=== PATIENT | male | born 1940 | race Caucasian/White ===

== ENCOUNTER 2016-07-20 08:44 | Emergency (ER) | payer MEDICARE ==
[2016-07-20 09:34] LABS: Urine Bacteria TRACE; Urine RBC >50 /hpf (0-5)
[2016-07-20 09:37] LABS: Hemoglobin 12.4 gm/dL (13.5-18.0); Mean Cell Volume 87.2 fl (78-100); Mean Corpuscular Hemoglobin 27.7 pg (27-31); Mean Corpuscular Hgb Conc 31.8 g/dl (32-36); Mean Platelet Volume 10.4 fl (6.0-9.5); Neutrophil # 3.2 K/mm3 (1.3-6.0); Neutrophil % 69.7 % (42-75.0); Platelet Count 201 K/mm3 (150-450); Red Blood Count 4.47 M/mm3 (4.7-6.0); Red Cell Distribution Width 14.9 % (11.5-14.0); White Blood Count 4.6 K/mm3 (4.0-10.5)
[2016-07-20 09:46] LABS: Albumin * 3.4 gm/dl (3.4-5.0); Anion Gap 8.7 mmol/L (6.8-13.8); BUN/Creatinine Ratio 11.5 (9.0-21.6); Bilirubin, Total 0.6 mg/dL (0.0-1.1); Ca. Corrected For Albumin 8.8 mg/dL (8.4-10.2); Calcium * 8.6 mg/dL (7.9-10.9); Carbon Dioxide 31.6 mmol/L (24-32.6); Potassium 4.3 mmol/L (3.4-4.6)
--- OUTSIDE RECORDS SUMMARY | 2016-07-20 10:27 | XMS REPORT | Continuity of Care Document ---
:1940 Author Organization [facility] ([facility]) Address [place] [address] Phone [phone] Care Team Providers Name Role Phone [phone], Need To Check Primary Care Provider Unavailable Source Comments This disclosure is being made pursuant to the Care Everywhere program, applicable federal and state laws, and may not contain all informaitonavailable regarding this patient.[facility] ([facility]) Active Allergies and Adverse Reactions No Known Allergies Current Medications Prescription Sig. Disp. Refills Start Date End Date Status terazosin 10 mg capsule Take 10 mg by Active mouth at bedtime. simvastatin 20 mg tablet Take 20 mg by Active mouth every evening. multivitamins with Take 1 tablet by Active mhpgcesi-qjhycsji-nnkppc mouth daily. 0.4-300-250 mg-mcg-mcg per tablet metoPROLol tartrate 50 mg Take 50 mg by Active tablet mouth 2 times daily. finasteride 5 mg tablet Take 5 mg by mouth Active daily. citalopram 20 mg tablet Take 20 mg by Active mouth daily. allopurinol 300 mg tablet Take 300 mg by Active mouth daily. Active Problems Problem Noted Date Malignant neoplasm of ascending colon 04/28/2015 Social History Tobacco Use Types Packs/Day Years Used Date Former Smoker Smokeless Tobacco: Never Used Last Filed Vital Signs Vital Sign Reading Time Taken Blood Pressure 125/63 04/28/2015 9:52 AM [employer] Pulse 80 04/28/2015 9:52 AM [employer] Temperature 35.3 C (95.5 F) 04/28/2015 9:52 AM [employer] Respiratory Rate - - Height 1.672 m (5' 5.85") 04/28/2015 9:52 AM [employer] Weight 86.6 kg (190 lb 14.7 oz) 04/28/2015 9:52 AM [employer] Body Mass Index 30.98 04/28/2015 9:52 AM [employer] Oxygen Saturation 97% 04/28/2015 9:52 AM [employer] Plan of Care Health Maintenance Due Date Last Done Comments Hepatitis B Vaccine (1 of 3 - Primary Series) 1940 Tdap Vaccine 1953 Lipid Disorder Screening 1960 Td Vaccine 1960 Colonoscopy 04/02/1992 Prostate Cancer Screening 1992 Zoster Vaccine 2002 Pneumococcal Vaccine (1 of 2 - PCV13) 2007 Influenza Vaccine: Seasonal (#1) 09/22/2015 Results from Last 3 Months Not on file
--- NOTE | 2016-07-20 10:28 | ERNOTE ---
ER Male HPI Stated Complaint: BLOOD IN URINE ER Male: other Time Seen by Provider: 07/20/16 10:05 Source: patient Exam Limitations: no limitations Immunizations: IMMUNIZATION HX History of Influenza Vaccine No Hx Pneumococcal Vaccination No Allergies/Adverse Reactions: Allergies No Known Allergies Allergy (Verified 07/20/16 08:51) Home Medications: HOME MEDICATIONS Allopurinol [Zyloprim] 300 mg PO 1800 03/17/15 [Last Taken Unknown] Aspirin [Aspirin Enteric Coated] 81 mg PO 1800 03/17/15 [Last Taken Unknown] Citalopram Hydrobromide [Celexa] 20 mg PO 1800 03/17/15 [Last Taken Unknown] Finasteride [Proscar] 5 mg PO 1800 03/17/15 [Last Taken Unknown] Metoprolol Tartrate [Lopressor] 50 mg PO 1800 03/17/15 [Last Taken 04/14/15 18: 00] Multivit-Min/FA/Lycopen/Lutein [[employer] Senior Multivitamin Tab] 1 each PO 1800 03/17/15 [Last Taken Unknown] Simvastatin [Zocor] 20 mg PO HS 03/17/15 [Last Taken Unknown] Terazosin HCl 10 mg PO 1800 03/17/15 [Last Taken Unknown] Omeprazole [Prilosec] 40 mg PO DAILY #90 cap 03/18/15 [Last Taken Unknown] Ferrous Sulfate [Iron] 325 mg PO 1800 04/11/15 [Last Taken Unknown] - History of Present Illness Narrative: Patient started to have urinary symptoms two weeks ago. Initially he had hesitancy,urgency, and frequency for about four days. Then those symptoms resolved, he was able to urinate with good flow but started to have gross hematuria. He denies any pain, no fever, no other symptoms. He has had multiple kidney stone in the past, last more than ten years ago. Review of Systems - Review of Systems Constitutional: Absent: recent illness, fever, chills ENT: Absent: sore throat Respiratory: Absent: shortness of breath, cough Cardiology: Absent: chest pain Gastrointestinal/Abdominal: Absent: nausea, vomiting, abdominal pain Genitourinary: Present: See HPI Musculoskeletal: Absent: back pain Neurological: Absent: headache - Patient's Past Medical History Patient History - Medical: Depression, Kidney stone Patient History - Cardiac/Respiratory: Hypertension, Hyperlipidemia Patient History - Cancer: No Hx of Cancer Patient History - Surgical Procedures: T & A, Other Patient History - Other: None - Family History Father Family History - Cardiac/Respiratory: CHF Mother Family History - Medical: No pertinent hx - Social History Living Situations: home Abuse History: No History of abuse Psych History: Hx of Depression, Current tx/ever been on anti-depressants or anti-anxiety meds Alcohol Use: none Drug Use: none - Immunizations Hx Pneumococcal Vaccination: No History of Influenza Vaccine: No Physical Exam - Physical Exam General Appearance: Present: wd/wn, alert, no apparent distress Respiratory: Present: no respiratory distress, normal breath sounds, no accessory muscle use, lungs clear Cardiovascular/Chest: Present: regular rate, rhythm, no murmur Gastrointestinal/Abdominal: Present: nontender, nondistended, soft Neurological Exam: Present: alert, oriented, normal mood/affect Skin Exam: Present: normal color, warm/dry ED Progress - Results and Orders Patient's Lab Results:: I have reviewed the patient's lab results. - Vital Signs Patient's Vital Signs:: I have reviewed the patient's vital signs. Vital Signs: Vital Signs 07/20/16 07/20/16 08:48 09:47 Temperature 36.0 C L Pulse Rate 58 L 61 Respiratory 12 12 Rate Blood Pressure 135/75 110/65 O2 Sat by Pulse 98 97 Oximetry - CT/Ultrasound CT/Ultrasound Narrative: Retroperitoneal ultrasound 1. No evidence for obstructive uropathy or suspicious renal parenchymal mass. 2. Bilateral renal cysts as discussed above. 3. Left lower pole intrarenal calcification measuring 1.0 x 0.4 x 1.3 cm. 4. Urinary bladder demonstrates a partially calcified masslike lesion, which may or may not be part of the enlarged prostate gland. Differential diagnosis includes a possible mass from the prostate gland or extension of the prostate enlargement into the urinary bladder lumen. Also consider large bladder calcification/stone, surrounded by blood, pus, proteinaceous debris (consider infection). Other considerations also include possible partially calcified bladder malignancy. Consider urology consultation CT urogramm 1. Hyperdense soft tissue density bladder mass, which appears to be closely associated with the left superior/lateral bladder wall. Differential diagnosis includes hematoma versus mycetoma/fungus ball versus neoplastic mass (either primary tumor of the bladder, versus metastatic disease, given known history of colon cancer). Given its location, less likely to be associated with the enlarged prostate gland. Consider urology consultation. 2. Large stellate bladder calcification/stone. 3. No evidence for obstructive uropathy. 4. Multiple left-sided intrarenal calcifications as above. 5. No suspicious renal parenchymal mass. Multiple bilateral cysts are identified. 6. Incomplete opacification of the bilateral ureters as discussed above. Opacified segments of the ureters and renal pelves grossly unremarkable. 7. Surgical changes of right hemicolectomy/appendectomy. 8. 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 9. Additional comments and details are as above. - Progress/Reassessment Chief Complaint: Genitourinary Problem Progress Note-Subjective: 07/20/16 11:45 discussed test results with patient 07/20/16 11:[address] Tierney, order CT urogram now, he will see patient tomorrow at 11:00 in his clinic here, NPO, notify OR for cystoscopy and possible bladder tumor resection 07/20/16 12:03 explained plan to patient Departure Clinical Impression: Bladder tumor - Departure Disposition: Home self-care Condition: Good Additional Instructions: do NOT have anything to eat or drink after midnight go to Dr Tierney office tomorrow at 11:00, he will see you in the office and then do a procedure in the hospital Referrals: Niall Lares MD [Associate] -
[2016-07-20 13:15] VITALS: BP 112/61
== END 2016-07-20 13:17 | disposition home or self-care (01) ==
LOC: ER 08:44
DX: D49.4 Neoplasm of unspecified behavior of bladder (principal); I10 Essential (primary) hypertension; E78.5 Hyperlipidemia, unspecified; F32.89 Other specified depressive episodes; Z87.442 Personal history of urinary calculi